=== PATIENT | male | born 1990 | race Caucasian/White ===

== ENCOUNTER 2021-02-26 12:54 | Emergency (ER) | payer OTHER ==
[2021-02-26 13:46] LABS: BASOPHIL 0.7 % (0-2); EOSINOPHIL 0.3 % (0-5); HCT 43.4 % (42.0-52.0); HGB 14.4 g/dl (13.2-18.0); MCH 30.2 pg (25.0-31.0); MCHC 33.2 g/dL (32.0-36.0); MONOCYTE 4.9 % (0-12); MPV 10.4 fL (6.0-9.5); NEUTROPHIL 71.9 % (41-80); NRBC 0; PLT 216 K/uL (150-400); RBC 4.77 M/uL (4.70-6.00); RDW 12.3 % (11.5-14.0)
[2021-02-26 13:53] LABS: BILIRUBIN NEGATIVE (NEGATIVE); BLOOD NEGATIVE Ery/uL (NEGATIVE); CLARITY CLEAR (CLEAR); COLOR YELLOW (YELLOW); GLUCOSE (U) NORMAL (NORMAL); LEUKOCYTES NEGATIVE Leu/uL (NEGATIVE); NITRITE NEGATIVE (NEGATIVE); PROTEIN NEGATIVE (NEGATIVE); UROBILINOGEN 0.2 mg/dL (0.2-1.0); pH 7.5 (5.0-9.0)
[2021-02-26 14:36] LABS: CREATININE 0.89 mg/dL (0.67-1.17); POTASSIUM 4.5 mmol/L (3.5-5.1)
[2021-02-26 14:37] LABS: ALBUMIN 4.3 g/dL (3.4-5.0); BILIRUBIN - TOTAL 0.3 mg/dL (0.2-1.0); GLOBULIN (CALCULATION) 3.3 g/dL; TOTAL PROTEIN 7.6 g/dL (6.4-8.2)
[2021-02-26] MEDS ORDERED: ZOFRAN4 M1 PO (16:16)
[2021-02-26] MEDS ORDERED: PEPCID AC20 MG PO (16:16)
== END 2021-02-26 16:35 | disposition home or self-care (01) ==
LOC: FER 12:54
PROVIDERS: Emergency Medicine
DX: R10.31 Right lower quadrant pain (principal); R11.2 Nausea with vomiting, unspecified; R19.7 Diarrhea, unspecified; F17.210 Nicotine dependence, cigarettes, uncomplicated
CPT/HCPCS: 36415; 80053; 81003; 82150; 83690; 85025; J2405; J7030; Q9967

== ENCOUNTER 2021-12-31 13:42 | Emergency (ER) | payer OTHER ==
[~2021-12-31 13:42] MED LIST: PEPCID AC20 MG PO; ZOFRAN4 M1 PO
[2021-12-31] MEDS ORDERED: MEDROL 4MG DOSEP4 MG PO (20:08)
[2021-12-31] MEDS ORDERED: CYCLOBENZAPRINE10 MG PO (20:08)
== END 2021-12-31 20:13 | disposition left against medical advice (07) ==
LOC: FER 13:42
DX: S00.81XA Abrasion of other part of head, initial encounter (principal); V49.40XA Driver injured in collision with unspecified motor vehicles in traffic accident, initial encounter; Z53.29 Procedure and treatment not carried out because of patient's decision for other reasons
CPT/HCPCS: 70450